=== PATIENT | female | born 1990 | race Caucasian/White ===

== ENCOUNTER → 2016-12-16 | Outpatient (CLI) | payer OTHER ==
[~2016-12-16] MED LIST: NONE PER PT
== END | disposition home or self-care (01) ==
LOC: STAR 11:47
PROVIDERS: ATTEND Specialist
DX: N94.10 Unspecified dyspareunia (principal); N94.4 Primary dysmenorrhea; R10.2 Pelvic and perineal pain
CPT/HCPCS: 36415; 84703; 85025

== ENCOUNTER 2016-12-20 07:40 | Day surgery (SDC) | payer OTHER ==
[~2016-12-20] VITALS: Ht 160 cm; Wt 93.0 kg
[~2016-12-20 07:40] MED LIST changes: +BUPIVACAINE/PF 0.25% ONE; +FLUORESCEIN SODIUM 500 MG/5 ML ONE
[2016-12-20] MEDS ORDERED: SCOPOLAMINE PATCH, 1.5MG PATCH.TD72 TD ONE (08:00)
[2016-12-20] MEDS ORDERED: ACETAMINOPHEN 325 MG TABLET PO PRN ×2 (08:30→10:00)
[2016-12-20] MEDS ORDERED: LABETALOL 5MG/ML, 20ML IV PRN ×2 (08:30→10:00)
[2016-12-20] MEDS ORDERED: HYDROmorphone 1 MG/ML, 1ML IV PRN ×2 (08:30→10:00)
[2016-12-20] MEDS ORDERED: ONDANSETRON 2MG/ML, 2ML IVPush PRN ×2 (08:30→10:00)
[2016-12-20] MEDS ORDERED: MIDAZOLAM 1 MG/ML, 2ML IV PRN ×2 (08:30→10:00)
[2016-12-20] MEDS ORDERED: PROMETHAZINE 25 MG/ML, 1ML IV PRN ×2 (08:30→10:00)
[2016-12-20] MEDS ORDERED: hydrALAzine 20 MG/ML, 1ML IV PRN ×2 (08:30→10:00)
[2016-12-20] MEDS ORDERED: OXYcodone 5 MG/5 ML ORAL.SOL UDC PO PRN ×2 (08:30→10:00)
[2016-12-20] MEDS ORDERED: EPHEDRINE 50 MG/ML, 1ML IVPush PRN ×2 (08:30→10:00)
[2016-12-20] MEDS ORDERED: FENTANYL PF 100 MCG/2ML IV PRN (08:30)
[2016-12-20] MEDS ORDERED: METOPROLOL 1 MG/ML, 5ML IV PRN ×2 (08:30→10:00)
[2016-12-20] MEDS ORDERED: MEPERIDINE/PF 25MG/0.5ML IVPush PRN ×2 (08:30→10:00)
[2016-12-20] MEDS ORDERED: LACTATED RINGERS 1,000 ML IV SCH (08:44)
[2016-12-20 09:04] LABS: HCG UR OBC PASS
[2016-12-20] MEDS ORDERED: SCOPOLAMINE PATCH, 1.5MG PATCH.TD72 TD STA (09:24)
[2016-12-20] MEDS ORDERED: MIDAZOLAM 1 MG/ML, 2ML ONE (09:32)
[2016-12-20] MEDS ORDERED: FENTANYL PF 250 MCG/5ML ONE (09:32)
[2016-12-20] MEDS ORDERED: PROPOFOL 10 MG/ML, 20ML ONE (09:43)
[2016-12-20] MEDS ORDERED: KETOROLAC 30 MG/1 ML ONE (09:43)
[2016-12-20] MEDS ORDERED: DEXAMETHASONE 4 MG/ML, 1ML ONE (09:43)
[2016-12-20] MEDS ORDERED: CEFOTETAN 2 GM ONE (09:43)
[2016-12-20] MEDS ORDERED: ROCURONIUM 10 MG/ML ONE (09:43)
[2016-12-20] MEDS ORDERED: SUCCINYLCHOLINE 20 MG/ML, 10ML ONE (09:43)
[2016-12-20] MEDS ORDERED: METOCLOPRAMIDE 5 MG/ML, 2ML ONE (09:43)
[2016-12-20] MEDS ORDERED: ONDANSETRON 2MG/ML, 2ML ONE (09:43)
[2016-12-20] MEDS ORDERED: BUPIVACAINE/PF 0.25% INFIL ONE (10:30)
[2016-12-20] MEDS ORDERED: SILVER NITRATE STICK TP ONE (10:42)
[2016-12-20] MEDS ORDERED: FENTANYL PF 100 MCG/2ML ONE (11:05)
[2016-12-20] MEDS ORDERED: ACETAMINOPHEN 325 MG TABLET ONE (11:05)
[2016-12-20] MEDS ORDERED: OXYcodone 5 MG/5 ML ORAL.SOL UDC ONE (11:05)
[2016-12-20] MEDS ORDERED: ACETAMINOPHEN 650 MG/20.3 ML UDC ONE (11:05)
[2016-12-20] MEDS: FENTANYL PF 100 MCG/2ML IV PRN ×2 (11:11→11:42)
== END 2016-12-20 13:15 | disposition home or self-care (01) ==
LOC: OUT 07:40
PROVIDERS: ATTEND Specialist
DX: N80.3 Endometriosis of pelvic peritoneum (principal); E66.9 Obesity, unspecified; Z68.36 Body mass index [BMI] 36.0-36.9, adult; J45.20 Mild intermittent asthma, uncomplicated; Z83.49 Family history of other endocrine, nutritional and metabolic diseases
CPT/HCPCS: 58350; 58662; 81025; J0330; J1100; J1885; J2250; J2405; J2704; J2765; J3010; J3490; S0074